=== PATIENT | female | born 1970 | race Caucasian/White ===

== ENCOUNTER 2020-01-25 08:05 | Emergency (ER) | payer MEDICAID ==
[~2020-01-25] VITALS: Ht 167.6 cm; Wt 129.3 kg
[~2020-01-25 08:05] MED LIST: ALTOPREV20 MG PO; FORTAMET500 MG PO; MULTIVITAMINS1 EAC7 PO; NORCO 5-325 TA1 EACH PO; PANTOPRAZOLE SO40 MG PO
== END 2020-01-25 10:23 | disposition home or self-care (01) ==
LOC: ED 08:05
DX: M54.5 Low back pain (principal); E11.9 Type 2 diabetes mellitus without complications; E78.00 Pure hypercholesterolemia, unspecified; Z88.5 Allergy status to narcotic agent; Z88.8 Allergy status to other drugs, medicaments and biological substances
CPT/HCPCS: 81001; 84703; 99283

== ENCOUNTER 2020-08-01 10:17 | Emergency (ER) | payer MEDICAID ==
[~2020-08-01] VITALS: Ht 167.6 cm; Wt 129.3 kg
[2020-08-01] MEDS ORDERED: AMOXICILLIN500 MG PO (12:01)
[2020-08-01] MEDS ORDERED: GARCINIA CAMBO1 EACH PO (12:01)
== END 2020-08-01 14:30 | disposition home or self-care (01) ==
LOC: ED 10:17
DX: R51.9 Headache, unspecified (principal); E11.9 Type 2 diabetes mellitus without complications; K21.9 Gastro-esophageal reflux disease without esophagitis; Z88.5 Allergy status to narcotic agent; Z88.1 Allergy status to other antibiotic agents; Z88.8 Allergy status to other drugs, medicaments and biological substances; Z79.899 Other long term (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
CPT/HCPCS: 80053; 85025; 96374; 96375; 99284-25; J1200; J1885; J2765; J7030

== ENCOUNTER 2020-10-11 23:16 | Emergency (ER) | payer MEDICAID ==
[~2020-10-11] VITALS: Ht 167.6 cm; Wt 129.3 kg
[~2020-10-11 23:16] MED LIST changes: +AMOXICILLIN500 MG PO; +GARCINIA CAMBO1 EACH PO
== END 2020-10-12 01:29 | disposition home or self-care (01) ==
LOC: ED 23:16
DX: R45.851 Suicidal ideations (principal); F32.9 Major depressive disorder, single episode, unspecified; F41.9 Anxiety disorder, unspecified; E11.9 Type 2 diabetes mellitus without complications; E78.00 Pure hypercholesterolemia, unspecified; G43.909 Migraine, unspecified, not intractable, without status migrainosus; Z88.5 Allergy status to narcotic agent; Z88.8 Allergy status to other drugs, medicaments and biological substances; Z88.1 Allergy status to other antibiotic agents
CPT/HCPCS: 80053; 80176; 84443; 85025; 99285

== ENCOUNTER 2020-10-20 19:35 | Emergency (ER) | payer MEDICAID ==
[~2020-10-20] VITALS: Ht 167.6 cm; Wt 136.0 kg
--- OUTSIDE RECORDS SUMMARY | 2020-10-20 19:42 | XMS ---
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 Care History Medical/Surgical 01/28/2020 [facility] - [facility] CALLED PATIENT- DISCUSSED PATIENT NEEDS TO TRANSFER INSURANCE TO THIS REGION ([place]) SO A PCP APT CAN BE SCHEDULED. - [facility] PROVIDED [facility] CONTACT NUMBER [phone] TO HAVE PATIENT CALL AND SET UP THE TRANSFER FOR INSURANCE. - PROVIDED WALK IN AVAILABILITY HOURS -PATIENT IS AWARE. E.D. VISIT COUNT (12 MO.) 4 MARGARITO [place] TOTAL 4 NOTE: Visits indicate total known visits. ED/UCC VISIT TRACKING (12 MO.) 10/20/2020 19:36 [facility] [place] TYPE: Emergency COMPLAINT: - BACK PAIN 10/11/2020 23:17 [facility] [place] TYPE: Emergency COMPLAINT: - SUICIDAL DIAGNOSES: - Allergy status to narcotic agent - Migraine, unspecified, not intractable, without status migrainosus - Allergy status to other drugs, medicaments and biological substances - Anxiety disorder, unspecified - Type 2 diabetes mellitus without complications - Suicidal ideations - Major depressive disorder, single episode, unspecified - Allergy status to other antibiotic agents - Pure hypercholesterolemia, unspecified 08/01/2020 10:18 [facility] [place] TYPE: Emergency COMPLAINT: - HEADACHE X 2WK DIAGNOSES: - Type 2 diabetes mellitus without complications - Other 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) No inpatient visits to display in this time frame [email or web address]
== END 2020-10-20 20:50 | disposition home or self-care (01) ==
LOC: ED 19:35
DX: M54.5 Low back pain (principal); E11.9 Type 2 diabetes mellitus without complications; Z88.5 Allergy status to narcotic agent; Z88.1 Allergy status to other antibiotic agents; Z88.8 Allergy status to other drugs, medicaments and biological substances
CPT/HCPCS: 81001; 99283

== ENCOUNTER 2020-11-05 19:11 | Emergency (ER) | payer MEDICAID ==
[~2020-11-05] VITALS: Ht 167.6 cm; Wt 135.6 kg
--- OUTSIDE RECORDS SUMMARY | 2020-11-05 19:14 | XMS ---
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 Care History Medical/Surgical 01/28/2020 [facility] - [facility] CALLED PATIENT- DISCUSSED PATIENT NEEDS TO TRANSFER INSURANCE TO THIS REGION ([place]) SO A PCP APT CAN BE SCHEDULED. - [facility] PROVIDED [facility] CONTACT NUMBER [phone] TO HAVE PATIENT CALL AND SET UP THE TRANSFER FOR INSURANCE. - PROVIDED WALK IN AVAILABILITY HOURS -PATIENT IS AWARE. E.D. VISIT COUNT (12 MO.) 5 MARGARITO Waters TOTAL 5 NOTE: Visits indicate total known visits. ED/UCC VISIT TRACKING (12 MO.) 11/05/2020 19:12 [facility] [place] TYPE: Emergency COMPLAINT: - LOWER ABDOMINAL PAIN 10/20/2020 19:[address] [facility] [place] TYPE: Emergency COMPLAINT: - BACK PAIN/ NON INJ DIAGNOSES: - Allergy status to narcotic agent - Allergy status to other drugs, medicaments and biological substances - Allergy status to other antibiotic agents - Low back pain - Type 2 diabetes mellitus without complications 10/11/2020 23:17 [facility] [place] [facility] [place] TYPE: Emergency COMPLAINT: - SUICIDAL DIAGNOSES: [...] - Pure hypercholesterolemia, unspecified 08/01/2020 10:18 [facility] [place] TYPE: Emergency COMPLAINT: - HEADACHE X 2WK DIAGNOSES: - Type 2 diabetes mellitus without complications - Other fci (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 - Allergy status to other drugs, medicaments and biological substances - Gastro-esophageal reflux disease without esophagitis - Allergy status to narcotic agent - Allergy status to other antibiotic agents - Headache, unspecified 01/25/2020 08:[address] [facility] [place] TYPE: Emergency COMPLAINT: - FLANK PAIN DIAGNOSES: - Allergy status to other drugs, medicaments and biological substances - Low back pain - Allergy status to narcotic agent - Pure hypercholesterolemia, unspecified - Type 2 diabetes mellitus without complications INPATIENT VISIT TRACKING (12 MO.) No inpatient visits to display in this time frame [id number]
== END 2020-11-05 22:56 | disposition home or self-care (01) ==
LOC: ED 19:11
DX: R10.32 Left lower quadrant pain (principal); E11.9 Type 2 diabetes mellitus without complications; E78.00 Pure hypercholesterolemia, unspecified; G43.909 Migraine, unspecified, not intractable, without status migrainosus; Z88.5 Allergy status to narcotic agent; Z88.1 Allergy status to other antibiotic agents; Z88.8 Allergy status to other drugs, medicaments and biological substances
CPT/HCPCS: 74177; 80053; 81001; 83690; 85025; 99284-25; Q9967

== ENCOUNTER 2021-04-29 20:27 | Emergency (ER) | payer OTHER ==
[~2021-04-29] VITALS: Ht 167.6 cm; Wt 127.7 kg
[2021-04-29] MEDS ORDERED: PANTOPRAZOLE SO20 MG PO (22:22)
== END 2021-04-30 00:07 | disposition left against medical advice (07) ==
LOC: ED 20:27
DX: Z53.21 Procedure and treatment not carried out due to patient leaving prior to being seen by health care provider (principal)
CPT/HCPCS: 81001; 87088

== ENCOUNTER 2022-06-12 20:07 | Emergency (ER) | payer OTHER ==
[~2022-06-12] VITALS: Ht 167.6 cm; Wt 134.9 kg
[~2022-06-12 20:07] MED LIST changes: +PANTOPRAZOLE SO20 MG PO
--- NOTE | 2022-06-13 18:32 | EKG ---
[facility] [address] [facility] [address] [place] [address] Signed Normal sinus rhythm Minimal voltage criteria for LVH, may be normal variant ( [place] product ) Borderline ECG No previous ECGs available Confirmed by CHARLES TOVAR MD ([id number]) on 06/13/2022 6:31:55 PM Electronically Signed By: CHARLES TOVAR MD 06/13/22 183 PATIENT NAME: YESICA BONE Electrocardiogram DATE OF : 70 PHYSICIAN: CHARLES TOVAR MD REPORT #: [id number] REPORT IS CONFIDENTIAL AND NOT TO BE RELEASED WITHOUT AUTHORIZATION
== END 2022-06-12 22:39 | disposition left against medical advice (07) ==
LOC: ED 20:07
DX: Z53.21 Procedure and treatment not carried out due to patient leaving prior to being seen by health care provider (principal)
CPT/HCPCS: 93005; 93010

== ENCOUNTER 2022-10-14 20:41 | Emergency (ER) | payer OTHER ==
[~2022-10-14] VITALS: Ht 167.6 cm; Wt 138.0 kg
[2022-10-14] MEDS ORDERED: ALKA-SELTZER P1 EAC4 PO (20:54)
[2022-10-14 22:10] VITALS: BP 130/95
== END 2022-10-14 22:11 | disposition home or self-care (01) ==
LOC: ED 20:41
DX: B34.9 Viral infection, unspecified (principal); Z20.822 Contact with and (suspected) exposure to COVID-19; E11.9 Type 2 diabetes mellitus without complications; E78.00 Pure hypercholesterolemia, unspecified; G43.909 Migraine, unspecified, not intractable, without status migrainosus; K21.9 Gastro-esophageal reflux disease without esophagitis; Z88.8 Allergy status to other drugs, medicaments and biological substances; Z88.5 Allergy status to narcotic agent; Z79.899 Other long term (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; Z88.1 Allergy status to other antibiotic agents
CPT/HCPCS: 87502; 99283; C9803; U0003

== ENCOUNTER 2023-07-12 17:09 | Emergency (ER) | payer OTHER ==
[~2023-07-12] VITALS: Ht 167.6 cm; Wt 134.3 kg
[~2023-07-12 17:09] MED LIST changes: +ALKA-SELTZER P1 EAC4 PO
[2023-07-12] MEDS ORDERED: NEURONTIN100 MG PO (17:46)
[2023-07-12 18:00] VITALS: BP 145/83
== END 2023-07-12 18:02 | disposition home or self-care (01) ==
LOC: ED 17:09
DX: E11.40 Type 2 diabetes mellitus with diabetic neuropathy, unspecified (principal); E78.00 Pure hypercholesterolemia, unspecified; G43.909 Migraine, unspecified, not intractable, without status migrainosus; K21.9 Gastro-esophageal reflux disease without esophagitis; Z88.8 Allergy status to other drugs, medicaments and biological substances
CPT/HCPCS: 99283

== ENCOUNTER 2023-10-05 12:00 | Emergency (ER) | payer OTHER ==
[~2023-10-05] VITALS: Ht 167.6 cm; Wt 135.0 kg
[~2023-10-05 12:00] MED LIST changes: +NEURONTIN100 MG PO
[2023-10-05 14:40] VITALS: BP 135/83
== END 2023-10-05 14:40 | disposition home or self-care (01) ==
LOC: ED 12:00
DX: M25.461 Effusion, right knee (principal); E11.9 Type 2 diabetes mellitus without complications; E78.00 Pure hypercholesterolemia, unspecified; G43.909 Migraine, unspecified, not intractable, without status migrainosus; K21.9 Gastro-esophageal reflux disease without esophagitis; Z88.8 Allergy status to other drugs, medicaments and biological substances; Z88.5 Allergy status to narcotic agent; Z88.1 Allergy status to other antibiotic agents
CPT/HCPCS: 73560; 99283-25

== ENCOUNTER 2023-10-06 11:09 | Emergency (ER) | payer OTHER ==
[~2023-10-06] VITALS: Ht 167.6 cm; Wt 134.1 kg
[2023-10-06 11:39] VITALS: BP 118/74
== END 2023-10-06 11:39 | disposition home or self-care (01) ==
LOC: ED 11:09
DX: S86.911A Strain of unspecified muscle(s) and tendon(s) at lower leg level, right leg, initial encounter (principal); E11.9 Type 2 diabetes mellitus without complications; E78.00 Pure hypercholesterolemia, unspecified; X58.XXXA Exposure to other specified factors, initial encounter; Z88.5 Allergy status to narcotic agent; Z88.1 Allergy status to other antibiotic agents; Z88.8 Allergy status to other drugs, medicaments and biological substances
CPT/HCPCS: 99283

== ENCOUNTER 2024-07-02 15:19 | Emergency (ER) | payer OTHER ==
[~2024-07-02] VITALS: Ht 167.6 cm; Wt 135.2 kg
[2024-07-02 15:46] LABS: BILIRUBIN, URINE NEGATIVE (negative); BLOOD/HGB, URINE SMALL (Negative); KETONE, URINE NEGATIVE (Negative); LEUK ESTERASE, URINE MODERATE (negative); NITRITE, URINE POSITIVE (negative); PH, URINE 5.5 (5-7)
[2024-07-02] MEDS ORDERED: PANTOPRAZOLE SO40 M2 PO (15:47)
[2024-07-02] MEDS ORDERED: BACTRIM DS TAB1 EACH PO (15:52)
[2024-07-02 15:57] LABS: BACTERIA, URINE 1+ /hpf (negative); CASTS, URINE NONE SEEN \\lpf; CRYSTALS, URINE NONE SEEN (0-1+); EPITHELIAL CELLS, URINE SQUAMOUS 1+ /lpf (0-1+); REFLEX CULTURE, URINE Yes (No); WHITE BLOOD CELLS, URINE >50 /HPF (0-5)
[2024-07-02 15:58] LABS: COLLECTION TYPE, URINE CLEAN CATCH
[2024-07-02 16:06] VITALS: BP 132/82
== END 2024-07-02 16:07 | disposition home or self-care (01) ==
LOC: ED 15:19
PROVIDERS: Emergency Medicine
DX: N39.0 Urinary tract infection, site not specified (principal); E11.9 Type 2 diabetes mellitus without complications; E78.00 Pure hypercholesterolemia, unspecified; G43.909 Migraine, unspecified, not intractable, without status migrainosus; K21.9 Gastro-esophageal reflux disease without esophagitis; Z88.5 Allergy status to narcotic agent; Z88.1 Allergy status to other antibiotic agents; Z88.8 Allergy status to other drugs, medicaments and biological substances; Z79.899 Other long term (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
CPT/HCPCS: 81001; 87077; 87088; 87186; 99283

== ENCOUNTER 2024-12-31 17:32 | Emergency (ER) | payer OTHER ==
[~2024-12-31] VITALS: Ht 167.6 cm; Wt 145.0 kg
[~2024-12-31 17:32] MED LIST changes: +AMOX TR-K CLV1 EACH PO; +BACTRIM DS TAB1 EACH PO; +PANTOPRAZOLE SO40 M2 PO
[2024-12-31 19:42] LABS: BASOPHILS 0.6 % (0.1-1.2); EOSINOPHILS 1.7 % (0.7-5.8); LYMPHOCYTES 33.9 % (19.3-51.7); MCH 28.5 PG (25.6-32.2); MCHC 32.6 g/dL (32.2-35.5); MCV 87.4 fL (79.4-94.8); MONOCYTES 4.8 % (4.7-12.5); NEUTROPHILS 58.7 % (34.0-71.1); RBC 4.70 M/uL (3.93-5.22)
[2024-12-31 19:51] LABS: BLOOD/HGB, URINE TRACE-I (Negative); KETONE, URINE NEGATIVE (Negative); LEUK ESTERASE, URINE NEGATIVE (negative); NITRITE, URINE NEGATIVE (negative)
[2024-12-31 19:59] LABS: CRYSTALS, URINE NONE SEEN (0-1+); EPITHELIAL CELLS, URINE SQUAMOUS 1+ /lpf (0-1+)
[2024-12-31 20:00] LABS: BACTERIA, URINE NONE SEEN /hpf (negative); CASTS, URINE NONE SEEN \\lpf; REFLEX CULTURE, URINE No (No)
[2024-12-31 20:00] LABS: ALT (SGPT) 31.0 U/L (14-59); AST (SGOT) 27.0 U/L (15-37); GLOMERULAR FILTRATION RATE,EST 77.0 mL/min (>60); PROTEIN, TOTAL 7.7 g/dL (6.4-8.2); UREA NITROGEN 17.0 mg/dL (7-18)
[2024-12-31 21:47] VITALS: BP 129/69
== END 2024-12-31 21:49 | disposition home or self-care (01) ==
LOC: ED 17:32
PROVIDERS: Emergency Medicine
DX: R10.12 Left upper quadrant pain (principal); E11.9 Type 2 diabetes mellitus without complications; K21.9 Gastro-esophageal reflux disease without esophagitis; Z90.49 Acquired absence of other specified parts of digestive tract; Z90.710 Acquired absence of both cervix and uterus; Z90.89 Acquired absence of other organs; Z88.1 Allergy status to other antibiotic agents; Z88.5 Allergy status to narcotic agent; Z88.8 Allergy status to other drugs, medicaments and biological substances; Z79.899 Other long term (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
CPT/HCPCS: 36415; 74177; 80053; 81001; 83690; 85025; 99284-25; Q9967

== ENCOUNTER 2025-05-22 16:15 | Emergency (ER) | payer OTHER ==
[~2025-05-22] VITALS: Ht 167.6 cm; Wt 140.3 kg
[2025-05-22] MEDS ORDERED: ASPIRIN 81 MG CHEW PO ONE (17:00)
[2025-05-22 17:17] LABS: BASOPHILS 0.7 % (0.1-1.2); EOSINOPHILS 3.7 % (0.7-5.8); LYMPHOCYTES 35.7 % (19.3-51.7); MCH 28.7 PG (25.6-32.2); MCHC 33.1 g/dL (32.2-35.5); MCV 86.8 fL (79.4-94.8); MONOCYTES 5.3 % (4.7-12.5); NEUTROPHILS 54.3 % (34.0-71.1); RBC 4.63 M/uL (3.93-5.22)
[2025-05-22 17:40] LABS: ALT (SGPT) 29 U/L (14-59); AST (SGOT) 29 U/L (15-37); GLOMERULAR FILTRATION RATE,EST 102 mL/min (>60); PROTEIN, TOTAL 7.4 g/dL (6.4-8.2); UREA NITROGEN 14 mg/dL (7-18)
[2025-05-22] MEDS ORDERED: LIDOCAINE & ANTACID 35 ML BTL PO ONE (18:00)
[2025-05-22 19:50] VITALS: BP 118/81
--- NOTE | 2025-05-23 12:12 | EKG ---
[facility] [address] [facility] [facility] [place], [place] [address] Signed Normal sinus rhythm Nonspecific ST abnormality Abnormal ECG Confirmed by Fatimah Wild DO ([id number]) on 05/23/2025 12:12:06 PM Electronically Signed By: FATIMAH WILD DO 05/23/251211 PATIENT NAME: YESICA LARRY Electrocardiogram DATE OF : 70 PHYSICIAN: FATIMAH WILD DO REPORT #: [id number] REPORT IS CONFIDENTIAL AND NOT TO BE RELEASED WITHOUT AUTHORIZATION
== END 2025-05-22 19:50 | disposition home or self-care (01) ==
LOC: ED 16:15
PROVIDERS: Emergency Medicine
DX: R07.9 Chest pain, unspecified (principal); R10.13 Epigastric pain; E11.9 Type 2 diabetes mellitus without complications; K21.9 Gastro-esophageal reflux disease without esophagitis; Z88.5 Allergy status to narcotic agent; Z88.8 Allergy status to other drugs, medicaments and biological substances; Z79.899 Other long term (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
CPT/HCPCS: 36415; 71045; 80053; 83735; 84484; 85025; 93005; 93010; 99285-25; A9270